=== PATIENT | male | born 1990 | race African-American/Black ===

== ENCOUNTER 2018-03-16 02:21 | Emergency (ER) | payer OTHER, SELFPAY ==
[2018-03-16] MEDS ORDERED: Dexamethasone 4 MG TAB ONE (02:48)
== END 2018-03-16 02:55 | disposition home or self-care (01) ==
LOC: SCSER 02:21
DX: S00.86XA Insect bite (nonvenomous) of other part of head, initial encounter (principal); S80.862A Insect bite (nonvenomous), left lower leg, initial encounter; S80.861A Insect bite (nonvenomous), right lower leg, initial encounter; S40.862A Insect bite (nonvenomous) of left upper arm, initial encounter; S40.861A Insect bite (nonvenomous) of right upper arm, initial encounter; F17.210 Nicotine dependence, cigarettes, uncomplicated; W57.XXXA Bitten or stung by nonvenomous insect and other nonvenomous arthropods, initial encounter
CPT/HCPCS: 99282; J8540

== ENCOUNTER 2018-03-29 07:12 | Emergency (ER) | payer SELFPAY ==
--- NOTE | 2018-03-29 07:55 | RAD ---
PA AND LATERAL VIEWS CHEST: Date 03/29/18 HISTORY: Chest pain. FINDINGS: Cardiomediastinum is normal. Lungs are well expanded and clear. Bony thorax is normal. IMPRESSION: Normal exam. POS: [facility]
--- NOTE | 2018-04-20 10:55 | EKG ---
Test Reason : Blood Pressure : / mmHG Vent. Rate : 076 BPM Atrial Rate : 076 BPM P-R Int : 138 ms QRS Dur : 086 ms QT Int : 378 ms P-R-T Axes : 057 070 024 degrees QTc Int : 425 ms Normal sinus rhythm Nonspecific T wave abnormality in III Normal ECG Confirmed by FLORENCIO CALDERON, ELIANA ([id number]), editor continuity and script FEDERICO BHAGAT ([id number]) on 04/20/2018 10:54:39 AM Referred By: Confirmed By:ELIANA MATIAS MD
== END 2018-03-29 07:48 | disposition home or self-care (01) ==
LOC: SCSER 07:12
DX: R07.89 Other chest pain (principal); F17.210 Nicotine dependence, cigarettes, uncomplicated
CPT/HCPCS: 71046; 93005